=== PATIENT | female | born 1930 | race Caucasian/White ===

== ENCOUNTER 2016-08-02 08:00 | Outpatient (CLI) | payer MEDICARE, OTHER | END 2016-08-02 08:01 | disposition home or self-care (01) | DX: E78.9 Disorder of lipoprotein metabolism, unspecified (principal); I10 Essential (primary) hypertension; R73.01 Impaired fasting glucose; M17.0 Bilateral primary osteoarthritis of knee; M25.562 Pain in left knee; M25.561 Pain in right knee ==

== ENCOUNTER 2016-08-02 14:37 | Outpatient (CLI) | payer MEDICARE, OTHER | END 2016-08-02 14:38 | disposition home or self-care (01) | DX: M17.0 Bilateral primary osteoarthritis of knee (principal); M25.562 Pain in left knee; M25.561 Pain in right knee ==

== ENCOUNTER 2017-02-27 10:33 | Outpatient (CLI) | payer MEDICARE, OTHER ==
--- NOTE | 2017-02-27 14:24 | DEXA Report ---
DEXA SCAN: 02/27/2017 CLINICAL INDICATION: Postmenopausal. TECHNIQUE: Dual energy x-ray absorptiometry (DXA) was performed on a [employer] system. Regions measured are the AP spine, femoral neck, and, if needed, forearm. COMPARISON: None. In accordance with the International Society for Clinical Densitometry (ISCD) guidelines, data from previous exams may be reanalyzed using current recommendations and techniques. This is done to allow a more accurate basis for comparison with the current study. FINDINGS: The data for the lumbar spine is as follows: REGION BMD (g/cm/cm) T-SCORE Z-SCORE L1 0.719 -3.4 -1.3 L2 0.801 -3.3 -1.2 L3 1.141 -0.5 1.7 L4 1.246 0.4 2.5 TOTAL 0.999 -1.5 0.6 NOTE: All evaluable vertebrae are used for classification. The data for the hip is as follows: REGION BMD (g/cm/cm) T-SCORE Z-SCORE Neck 0.678 -2.6 0.0 TOTAL 0.730 -2.2 0.3 NOTE: The femoral neck or total proximal femur, whichever is lowest, is used for classification. IMPRESSION: THE WHO CLASSIFICATION BASED ON THE INTERNATIONAL REFERENCE STANDARD IS OSTEOPOROSIS (REFERENCE LEFT FEMORAL NECK). THE FRACTURE RISK IS HIGH. RECOMMENDATION: Patients with diagnosis of osteoporosis or osteopenia should have regular bone mineral density assessment. For those eligible for Medicare, routine testing is allowed once every 2 years. Testing frequency can be increased for patients who have rapidly progressing disease or for those who are receiving medical therapy to restore bone mass. COMMENT: World Health Organization (WHO) definitions for osteoporosis and osteopenia: NORMAL BMD: T-score at -1.0 or higher, fracture risk is low. OSTEOPENIA BMD: T-score between -1.0 and -2.5, fracture risk is increased. OSTEOPOROSIS BMD: T-score at -2.5 or lower, fracture risk high. National Osteoporosis Foundation recommends: 1. Obtain adequate dietary calcium (at least 1200 mg per day) and vitamin D (400 -800 international units per day). 2. Participate, as appropriate, in regular weightbearing and muscle- strengthening exercise. 3. Avoid tobacco use and reduce alcohol and caffeine intake. 4. For more detailed information see the website at www.NOF.org. MTDD
== END 2017-02-27 10:34 | disposition home or self-care (01) ==
LOC: DI 10:33
PROVIDERS: ATTEND Family Medicine
DX: M81.0 Age-related osteoporosis without current pathological fracture (principal)
CPT/HCPCS: 77080

== ENCOUNTER 2017-03-30 15:10 | Outpatient (CLI) | payer MEDICARE, OTHER ==
--- NOTE | 2017-03-30 19:13 | Ultrasound Report ---
ARTERIAL DOPPLER OF THE LOWER EXTREMITIES: 03/30/2017 HISTORY: Peripheral artery disease, leg pain, history of stents. COMPARISON: 03/27/2013 TECHNIQUE: Bilateral arterial Doppler examination of the lower extremities with saved static images reviewed. FINDINGS: All velocities in centimeters per second. Peak systolic velocities as follows: RIGHT SIDE: Common femoral 218, proximal superficial femoral 152, mid superficial femoral no flow demonstrated, distal superficial femoral 112, profunda femoral 320, popliteal 63, anterior tibial 48, posterior tibial 57, peroneal 35, dorsalis pedis 50. All flow is monophasic except for triphasic common femoral flow. LEFT SIDE: Common femoral 183, proximal femoral 88, mid femoral no flow, distal femoral 37, profunda femoral 248, popliteal 75, anterior tibial 43, posterior tibial 61, peroneal 28, dorsalis pedis 42. Flow is predominately monophasic with triphasic flow in the common femoral and proximal femoral arteries. IMPRESSION: 1. HEMODYNAMICALLY SIGNIFICANT STENOSIS IN THE BILATERAL PROFUNDA FEMORAL ARTERIES, SIMILAR TO PREVIOUS. 2. HEMODYNAMICALLY SIGNIFICANT STENOSIS PROXIMAL RIGHT COMMON FEMORAL ARTERY. 3. BILATERAL SUPERFICIAL FEMORAL ARTERY STENT OCCLUSIONS. 4. COLLATERAL RECONSTITUTION OF DISTAL FEMORAL ARTERIES BILATERALLY. 5. FINDINGS ARE SIMILAR TO THE STUDY OF 2012. JOB #: [id number] EXT JOB #: [id number] LAKESHIA
== END 2017-03-30 15:11 | disposition home or self-care (01) ==
LOC: DI 15:10
PROVIDERS: ATTEND Family Medicine
DX: I70.203 Unspecified atherosclerosis of native arteries of extremities, bilateral legs (principal); I77.1 Stricture of artery
CPT/HCPCS: 93925

== ENCOUNTER 2017-04-14 10:31 | Outpatient (CLI) | payer MEDICARE, OTHER ==
--- NOTE | 2017-04-14 14:18 | Ultrasound Report ---
CAROTID DUPLEX: 04/14/2017 CLINICAL INDICATION: Peripheral vascular disease. TECHNIQUE: Real-time sonographic vascular imaging was performed by the horticultural technical officer through the carotid arteries utilizing both color-flow and Doppler spectral analysis. Multiple brand representative static images were saved for review. Vessel PSV cm/sec 2D Plaque Estimate % EDV cm/sec ICA/CCA PSV % Stenosis RCCA Prox 71 -- RCCA Dist 62 10 -- RECA 156 -- RT BULB 62 -- 18 1.0 MEREDITH Prox 96 -- 34 1.6 MEREDITH Mid 86 -- 19 1.4 MEREDITH Dist 85 -- 20 1.4 RVA 43 RVA flow direction: Antegrade. Vessel PSV cm/sec 2D Plaque Estimate % EDV cm/sec ICA/CCA PSV % Stenosis LCCA Prox 106 -- LCCA Dist 88 15 -- LECA 175 -- LFT BULB 92 -- 13 1.0 LICA Prox 108 -- 21 1.2 LICA Mid 107 -- 24 1.2 LICA Dist 130 -- 32 1.5 LVA 102 LVA flow direction: Antegrade. Velocity criteria are extrapolated from diameter data as defined by the Society of Radiologists in Ultrasound Consensus Conference Radiology 2003; 229; 340-346. Degree of Stenosis % ICA PSV cm/sec Plaque Estimate % ICA/CCA RSV Ratio ICA EDV cm/sec Normal < 125 None < 2.0 < 40 <50 < 125 < 50 < 2.0 < 40 50-69 125 - 130 >/= 50 2.0 - 4.0 40 - 100 >/= 70 but less than near occlusion > 230 >/= 50 > 4.0 > 100 Near occlusion High, low, or undetectable Visible lumen Variable Variable Total occlusion Undetectable No detectable lumen Not applicable Not applicable FINDINGS RIGHT: There is mild plaquing in the right carotid bifurcation, without evidence of a focal hemodynamically significant carotid stenosis. LEFT: There is mild plaquing in the left carotid bifurcation, without evidence of a focal hemodynamically significant carotid stenosis. The vertebral arteries demonstrate antegrade flow bilaterally. Note is made of an irregular heart rhythm. IMPRESSION: MILD PLAQUING BILATERALLY, WITHOUT EVIDENCE OF A FOCAL HEMODYNAMICALLY SIGNIFICANT CAROTID STENOSIS. IRREGULAR HEART RHYTHM. MTDD
== END 2017-04-14 10:32 | disposition home or self-care (01) ==
LOC: DI 10:31
PROVIDERS: ATTEND Family Medicine
DX: I77.9 Disorder of arteries and arterioles, unspecified (principal); I73.9 Peripheral vascular disease, unspecified
CPT/HCPCS: 93880

== ENCOUNTER 2017-04-27 08:46 | Outpatient (CLI) | payer MEDICARE, OTHER ==
[2017-04-27] MEDS ORDERED: REGADENOSON 0.4 MG/5 ML SYRINGE IVP ONE (10:43)
--- NOTE | 2017-04-27 12:59 | CARDIAC PROCEDURE NOTE ---
DATE OF SERVICE: 04/27/2017 00:00:00 PRIMARY CARE PHYSICIAN: Liam Benites DO. PROCEDURE: Pharmacologic stress test. PROCEDURE SYMPTOMS: Preoperative orthopedic surgery in an elderly person. CARDIAC RISK FACTORS: Include age, hypertension, hyperlipidemia, and peripheral arterial disease. PREVIOUS CARDIAC PROCEDURES: Include ETT approximately 25 years ago. CLINICAL HISTORY: An 86-year-old female without known coronary artery disease. INITIAL RESTING VITAL SIGNS: Blood pressure 164/56, heart rate 69, height 62 inches, weight 128 pound s, BMI 23.0. PROCEDURE AND FINDINGS: The patient's identity and date verified. Consent signed. Safety stop. Pharmacologic stress testing was performed with Lexiscan at a dose of 0.4 mg over 10 seconds. The hea rt rate increased to 84 beats per minute from the infusion. The blood pressure response was normal, d ecreasing to 124/54. The patient developed infusion related symptoms, which included a very mild ches t pressure. The symptoms resolved spontaneously. The resting ECG demonstrated normal sinus rhythm wit h no ST or T-wave changes. Maximum ST segment depression with stress was less than 0.5 mm and upslopi ng. There were occasional monomorphic PVCs, occasionally in a bigeminal pattern. FINAL IMPRESSION 1. Negative electrocardiogram for ischemia in the setting of vasodilator stress. 2. Nondiagnostic stress test for angina. 3. Occasional premature ventricular contractions (PVCs), including bigeminy. DISCUSSION AND RECOMMENDATIONS: Await myocardial perfusion report. JOB #: [id number] EXT JOB #:[id number]
--- NOTE | 2017-04-27 15:17 | Nuclear Medicine Report ---
EXAM: NUCLEAR MEDICINE MYOCARDIAL PERFUSION STRESS AND REST EXAM DATE: 04/27/2017 10:02 AM. CLINICAL HISTORY: Hypertension and peripheral vascular disease. COMPARISON: No priors. TECHNIQUE: Initially, patient was given 9.6 mCi technetium 99m sestamibi IV for the rest portion of t he study. Non-gated cardiac SPECT scintigraphy performed with multiplanar reformats. After an appropriate delay, patient given 0.4 mg Lexiscan for pharmacologic stress. Next, patient given 41.2 mCi technetium 99m sestamibi IV. Cardiac gated SPECT scintigraphy performed with multiplanar reformats, wall motion analysis, and left ventricular ejection fraction estimation. FINDINGS: There is uniform radiopharmaceutical activity in the left ventricular myocardium on stress and rest. No fixed or reversible stress-related perfusion defects. Wall motion appears uniform. Left ventricular ejection fraction estimated at 75%. IMPRESSION: 1. No scintigraphic evidence of inducible ischemia or infarct. 2. Left ventricular ejection fraction estimated at 75%. [facility] Referring Provider Line: [phone] SITE ID: [id number]
[2017-04-27 16:40] VITALS: BP 164/56
== END 2017-04-27 08:47 | disposition home or self-care (01) ==
LOC: DI 08:46
PROVIDERS: ATTEND Family Medicine
DX: I10 Essential (primary) hypertension (principal); I70.209 Unspecified atherosclerosis of native arteries of extremities, unspecified extremity; E78.5 Hyperlipidemia, unspecified
CPT/HCPCS: 78452; 93017; A9500; J2785

== ENCOUNTER 2017-05-05 10:10 | Outpatient (CLI) | payer MEDICARE, OTHER ==
--- NOTE | 2017-05-05 18:32 | MRI Report ---
EXAM: MRI LUMBAR SPINE WITHOUT CONTRAST EXAM DATE: 05/05/2017 11:25 AM. CLINICAL HISTORY: Right foot numbness which radiates up lower leg. Bilateral ankle pain. Leg numbness . COMPARISON: None. TECHNIQUE: Multiplanar, multisequence T1-weighted and fluid-sensitive sequences of the lumbar spine without contrast. Other: None. FINDINGS: Numbering assumes 5 non-rib bearing lumbar type vertebral bodies. A T2 hyperintensity in the right upper quadrant could reflect a fluid-filled duodenal bulb. There is a T2 hypointense focus measuring 11 mm along the medial aspect of the right colon on image 8 of serie s 701. This is slightly T1 hyperintense. A tiny cortical cyst is seen mid pole left kidney. No suspicious marrow replacement is identified. Grade 1 retrolisthesis of L2 relative to L3 and L3 re lative to L4 is present. Grade 1 anterolisthesis of L5 relative to S1 is present. The distal tip of the conus medullaris is seen to the level of the L4-L5 disk space. The distal tip o f the conus medullaris is seen on the dorsal aspect of the thecal sac. T11-T12 and T12-L1: Minimal posterior disk protrusions. L1-L2: Grade 1 retrolisthesis of L1 relative to L2 is present. A mild posterior disk protrusion is pr esent. No central canal or foraminal stenosis. L2-L3: A mild to moderate posterior disk protrusion is seen. Superior lateral recess stenosis is seen on the left. No central canal or foraminal stenosis. L3-L4: A mild to moderate posterior disk protrusion is seen. Right foraminal narrowing is seen. At le ast moderate left foraminal stenosis is present. Superior lateral recess stenosis is seen bilaterally . L4-L5: A mild posterior disk protrusion is seen more focal involving the right and to a lesser extent left foraminal margin of the disk. Moderate right foraminal stenosis is present. Superior lateral re cess stenosis is seen on the right and to a lesser extent on the left. L5-S1: A mild posterior disk protrusion is seen. Disk and osteophyte are seen along the foraminal mar gin of the disk bilaterally greater on the left relative to the right. [id number] right foramin al stenosis is seen. No left foraminal stenosis is present. Diskogenic endplate irregularity is seen at T11-T12, L2-L3, and L3-L4. Facet/ligamentum flavum hypertrophy is seen throughout the lumbar spine. IMPRESSION: 1. Degenerative disk disease is seen throughout the lumbar spine. 2. No central canal stenosis. 3. Mild to moderate right foraminal stenosis is seen at L5-S1, moderate right foraminal stenosis seen at L4-L5, and moderate left foraminal stenosis is present at L3-L4. 4. The distal tip of the conus medullaris is low-lying and appears to be tethered to the dorsal aspec t of the thecal sac at the level of the L4-L5 disk space. 5. Multilevel spondylolisthesis is present. 6. The nodule along the medial wall of the ascending colon might reflect a diverticulum. Comment: The following findings are so common in adults without low back pain that while we report th eir presence, they must be interpreted with caution and in the context of the clinical situation. (Re barbara Marcus et al, Spine 2001) Prevalence of findings in patients without low back pain: Disk degeneration (any evidence): 92% Disk desiccation/T2 signal loss: 83% Disk height loss: 56% Disk bulge: 64% Disk protrusion: 32% Annular tear/high intensity zone: 38% [facility] Referring Provider Line: [phone] SITE ID: [id number]
== END 2017-05-05 10:11 | disposition home or self-care (01) ==
LOC: DI 10:10
PROVIDERS: ATTEND Surgery Vascular Surgery
DX: M51.26 Other intervertebral disc displacement, lumbar region (principal); M51.36 Other intervertebral disc degeneration, lumbar region; M43.16 Spondylolisthesis, lumbar region; M51.27 Other intervertebral disc displacement, lumbosacral region
CPT/HCPCS: 72148

== ENCOUNTER 2017-08-21 08:09 | Outpatient (CLI) | payer MEDICARE, OTHER ==
[2017-08-21 12:58] LABS: BASOPHILS % (AUTO) 0.7 %; EOSINOPHILS # (AUTO) 0.1 10^3/uL (0.0-0.7); EOSINOPHILS % (AUTO) 1.6 %; HGB - HEMOGLOBIN 8.3 g/dL (12.0-16.0); LYMPHOCYTES # (AUTO) 1.6 10^3/uL (1.5-3.5); LYMPHOCYTES % (AUTO) 22.2 %; MEAN CORPUSCULAR HEMOGLOBIN 20.6 pg (27.0-31.0); MEAN CORPUSCULAR HGB CONC 31.5 g/dL (32.0-36.0); MEAN CORPUSCULAR VOLUME 65.4 fL (81.0-99.0); MEAN PLATELET VOLUME 7.9 fL (7.9-10.8); MONOCYTES # (AUTO) 0.5 10^3/uL (0.0-1.0); MONOCYTES % (AUTO) 7.5 %; NEUTROPHILS # (AUTO) 4.8 10^3/uL (1.5-6.6); PLT - PLATELET COUNT 340 10^3/uL (130-450); RED BLOOD COUNT 4.02 10^6/uL (4.20-5.40); WHITE BLOOD COUNT 7.1 x10^3/uL (4.8-10.8)
[2017-08-21 13:35] LABS: ALBUMIN 3.8 g/dL (3.2-5.5); ALBUMIN/GLOBULIN RATIO 1.4 (1.0-2.2); ALKALINE PHOSPHATASE 56 IU/L (42-121); ALT ALANINE AMINOTRANSFERASE 16 IU/L (10-60); AST ASPARTATE AMINOTRANSFERASE 22 IU/L (10-42); BILIRUBIN,TOTAL 0.3 mg/dL (0.2-1.0); BUN - BLOOD UREA NITROGEN 21 mg/dL (6-20); CALCIUM 9.1 mg/dL (8.5-10.3); CARBON DIOXIDE - CO2 24 mmol/L (21-32); CHLORIDE 106 mmol/L (101-111); CHOLESTEROL 164 mg/dL; CREATININE 0.7 mg/dL (0.4-1.0); GFR - MDRD 79 (>89); GLUCOSE 105 mg/dL (70-100); HDL CHOLESTEROL 82 mg/dL; LDL CHOLESTEROL,CALCULATED 70 mg/dL; LDL/HDL RATIO 0.9 (<4.4); SODIUM 135 mmol/L (135-145); TOTAL PROTEIN 6.5 g/dL (6.7-8.2); VLDL CHOLESTEROL 12 mg/dL
== END 2017-08-21 08:10 | disposition home or self-care (01) ==
LOC: LAB.WCP 08:09
PROVIDERS: ATTEND Family Medicine
DX: I10 Essential (primary) hypertension (principal); E78.9 Disorder of lipoprotein metabolism, unspecified
CPT/HCPCS: 36415; 80053; 80061; 83721; 84443; 85025

== ENCOUNTER 2017-09-04 10:34 | Outpatient (CLI) | payer MEDICARE, OTHER ==
[2017-09-04 19:43] LABS: % IRON SATURATION 3 % (20-50); IRON 15 ug/dL (28-170); TOTAL IRON BINDING CAPACITY 433 ug/dL (250-450); TRANSFERRIN 309 mg/dL (192-382)
== END 2017-09-04 10:35 ==
LOC: LAB.WCP 10:34
PROVIDERS: ATTEND Physician Assistant Medical
DX: D64.9 Anemia, unspecified (principal)
CPT/HCPCS: 36415; 82728; 83540; 84466

== ENCOUNTER 2017-09-21 15:19 | Outpatient (CLI) | payer MEDICARE, OTHER ==
[2017-09-21 19:16] LABS: BASOPHILS # (AUTO) 0.1 10^3/uL (0.0-0.1); BASOPHILS % (AUTO) 0.7 %; EOSINOPHILS # (AUTO) 0.1 10^3/uL (0.0-0.7); EOSINOPHILS % (AUTO) 1.9 %; HGB - HEMOGLOBIN 9.5 g/dL (12.0-16.0); LYMPHOCYTES # (AUTO) 1.6 10^3/uL (1.5-3.5); LYMPHOCYTES % (AUTO) 21.5 %; MEAN CORPUSCULAR HEMOGLOBIN 21.9 pg (27.0-31.0); MEAN CORPUSCULAR HGB CONC 31.2 g/dL (32.0-36.0); MEAN CORPUSCULAR VOLUME 70.1 fL (81.0-99.0); MEAN PLATELET VOLUME 8.3 fL (7.9-10.8); MONOCYTES # (AUTO) 0.6 10^3/uL (0.0-1.0); MONOCYTES % (AUTO) 7.9 %; PLT - PLATELET COUNT 327 10^3/uL (130-450); RED BLOOD COUNT 4.33 10^6/uL (4.20-5.40); RED CELL DISTRIBUTION WIDTH 24.8 % (12.0-15.0); WHITE BLOOD COUNT 7.3 x10^3/uL (4.8-10.8)
[2017-09-21 19:35] LABS: % IRON SATURATION 27 % (20-50); IRON 92 ug/dL (28-170); TOTAL IRON BINDING CAPACITY 343 ug/dL (250-450); TRANSFERRIN 245 mg/dL (192-382)
[2017-09-21 19:44] LABS: FERRITIN 571.4 ng/mL (11.0-306.8)
[2017-09-21 19:47] LABS: FOLATE 16.51 ng/mL (5.90 - >24.8)
[2017-09-21 19:48] LABS: PLATELET ESTIMATE, MANUAL NORMAL (130-450,000) (NORMAL); PLATELET MORPHOLOGY NORMAL APPEARANCE (NORMAL)
== END 2017-09-21 15:20 ==
LOC: LAB.WCP 15:19
PROVIDERS: ATTEND Family Medicine
DX: D64.9 Anemia, unspecified (principal)
CPT/HCPCS: 36415; 82607; 82728; 82746; 83540; 84466; 85025

== ENCOUNTER 2018-06-26 11:19 | Outpatient (CLI) | payer MEDICARE, OTHER ==
[2018-06-26 19:08] LABS: BASOPHILS # (AUTO) 0.1 10^3/uL (0.0-0.1); BASOPHILS % (AUTO) 0.8 %; EOSINOPHILS # (AUTO) 0.1 10^3/uL (0.0-0.7); EOSINOPHILS % (AUTO) 1.3 %; HGB - HEMOGLOBIN 12.6 g/dL (12.0-16.0); LYMPHOCYTES # (AUTO) 1.6 10^3/uL (1.5-3.5); MEAN CORPUSCULAR HEMOGLOBIN 29.3 pg (27.0-31.0); MEAN CORPUSCULAR HGB CONC 32.8 g/dL (32.0-36.0); MEAN CORPUSCULAR VOLUME 89.3 fL (81.0-99.0); MEAN PLATELET VOLUME 8.4 fL (7.9-10.8); MONOCYTES # (AUTO) 0.5 10^3/uL (0.0-1.0); MONOCYTES % (AUTO) 8.3 %; NEUTROPHILS # (AUTO) 4.2 10^3/uL (1.5-6.6); NEUTROPHILS % (AUTO) 65.6 %; PLT - PLATELET COUNT 279 10^3/uL (130-450); WHITE BLOOD COUNT 6.5 x10^3/uL (4.8-10.8)
== END 2018-06-26 23:59 | disposition home or self-care (01) ==
LOC: LAB.WCP 11:19
PROVIDERS: ATTEND Family Medicine
DX: D64.9 Anemia, unspecified (principal)
CPT/HCPCS: 36415; 85025

== ENCOUNTER 2019-05-23 13:34 | Outpatient (CLI) | payer MEDICARE, OTHER | END 2019-05-23 13:35 | disposition critical access hospital (66) | LOC: EMS 13:34 | PROVIDERS: ATTEND Surgery | DX: R42 Dizziness and giddiness (principal); R06.02 Shortness of breath | CPT/HCPCS: A0425; A0429 ==

== ENCOUNTER 2019-05-23 13:53 | Inpatient (IN) | payer MEDICARE, OTHER ==
--- NOTE | 2019-05-23 14:32 | ED Physician Documentation ---
PD HPI DYSPNEA - Stated complaint Stated Complaint: DIZZY/SOA - Chief complaint Chief Complaint: Neuro - History obtained from History obtained from: Patient, EMS - History of Present Illness Timing - onset: How many weeks ago (She has noticed pedal edema for the last 5 or 6 weeks with progression of it. It does get better with raising her legs and elevating. She has noticed dyspnea on exertion for the last 1 to 2 weeks which has significantly worsened over the last several days. She is feeling lightheaded after standing up. She denies any vertigo. She denies any chest pain. She has a pressure feeling in her chest and back when walking around and breathing the last several days to a week. She has had a very slight cough. She denies any fevers or sputum production.) Timing - onset during: Light activity, Exertion Timing - duration: Weeks (1) Timing - details: Gradual onset, Still present, Waxing and waning Inciting event(s): No: Out of meds, URI, Immobilization/travel Improved by: Rest. No: Sitting up Worsened by: Exertion. No: Laying flat Associated symptoms: Chest pain / discomfort (pressure with walking the past week only). No: Fever, Cough, Hemoptysis Similar symptoms before: Has not had sx before Recently seen: Not recently seen Review of Systems Constitutional: denies: Fever, Chills Nose: denies: Rhinorrhea / runny nose, Congestion, Epistaxis Throat: denies: Sore throat Cardiac: reports: Chest pain / pressure, Pedal edema. denies: Palpitations, Calf pain Respiratory: denies: Cough GI: denies: Abdominal Pain, Nausea, Vomiting, Diarrhea, Bloody / black stool Skin: denies: Rash, Lesions Musculoskeletal: denies: Back pain, Extremity pain Neurologic: reports: Generalized weakness. 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 Cardiovascular: Fempop bypass HEENT: Cataracts - Present Medications Home Medications: Ambulatory Orders Medication Instructions Recorded Confirmed Amlodipine Bes/Olmesartan Med 1 each PO DAILY 07/23/13 07/23/13 [Rodrigo 10-20 mg Tablet] Cholecalciferol (Vitamin D3) 2,000 unit PO DAILY 09/15/17 09/15/17 [Vitamin D3] Magnesium 400 mg PO DAILY 09/15/17 09/15/17 - Allergies Allergies/Adverse Reactions: Allergies Allergy/AdvReac Type Severity Reaction Status Date / Time No Known Drug Allergies Allergy Verified 07/23/13 14:40 PD ED PE NORMAL - Vitals Vital signs reviewed: Yes - General General: Alert and oriented X 3, No acute distress, Well developed/nourished - HEENT HEENT: Moist mucous membranes, Pharynx benign - Neck Neck: Supple, no meningeal sign, No adenopathy - Cardiac Cardiac: RRR, No murmur - Respiratory Respiratory: No: Clear bilaterally (faint crackles at the bases. No coarse sounds. ) - Abdomen Abdomen: Normal bowel sounds, Soft, Non distended - Female Female : Deferred - Rectal Rectal: Other (no hemorrhoids. Soft stool brown in vault. Guiac negative. ) - Back Back: No CVA TTP - Derm Derm: Normal color, Warm and dry - Extremities Extremities: No calf tenderness / cord, Other (2+ edema in both legs/ankles up to the knees. ) - Neuro Neuro: Alert and oriented X 3, No motor deficit, Normal speech Results - Vitals Vitals: Vital Signs - 24 hr 05/23/19 13:58 Temperature 36.9 C Heart Rate 68 Respiratory 18 Rate Blood Pressure 157/55 H O2 Saturation 99 Oxygen O2 Source Room air - EKG (time done) 14:02 Rate: Rate (enter#) (64) Rhythm: NSR [place]: Normal Intervals: Normal MS QRS: Normal Ischemia: Normal ST segments. No: ST elevation c/w ischemia, ST depression - Labs Labs: Laboratory Tests 05/23/19 05/23/19 05/23/19 14:41 14:41 14:41 WBC 6.1 RBC 3.20 L Hgb 5.6 L* Hct 20.2 L MCV 63.1 L MCH 17.5 L MCHC 27.7 L RDW 18.0 H Plt Count 303 MPV 9.3 Reticulocyte % (Auto) Neut # (Auto) 4.3 Lymph # (Auto) 1.1 L [place] # (Auto) 0.6 Eos # (Auto) 0.1 Baso # (Auto) 0.0 Absolute Nucleated RBC 0.00 Nucleated RBC % 0.0 Manual Slide Review Indicated Platelet Estimate NORMAL (130-450,000) Platelet Morphology NORMAL APPEARANCE RBC Morph Micro Appear 1+ SCHISTOCYTES Absolute Retic Sodium 135 Potassium 4.3 Chloride 104 Carbon Dioxide 22 Anion Gap 9.0 BUN 29 H Creatinine 0.7 Estimated GFR (MDRD) 79 L Glucose 122 H Calcium 8.8 Magnesium 2.2 Iron TIBC Transferrin Ferritin Total Bilirubin 0.5 AST 23 ALT 25 Alkaline Phosphatase 56 Lactate Dehydrogenase Troponin I High Sens 89.0 H* B-Natriuretic Peptide Total Protein 5.9 L Albumin 3.3 Globulin 2.6 Albumin/Globulin Ratio 1.3 Lipase 43 Vitamin B12 TSH Urine Color Urine Clarity Urine pH Ur Specific [place] Urine Protein Urine Glucose (UA) Urine Ketones Urine Occult Blood Urine Nitrite Urine Bilirubin Urine Urobilinogen Ur Leukocyte Esterase Urine RBC Urine WBC Ur Squamous Epith Cells Urine Bacteria Ur Microscopic Review Urine Culture Comments Blood Type Blood Type Recheck Antibody Screen Crossmatch IS Only 05/23/19 05/23/19 05/23/19 14:41 14:41 14:41 WBC RBC 3.17 L Hgb Hct MCV MCH MCHC RDW Plt Count MPV Reticulocyte % (Auto) 1.72 Neut # (Auto) Lymph # (Auto) [place] # (Auto) Eos # (Auto) Baso # (Auto) Absolute Nucleated RBC Nucleated RBC % Manual Slide Review Platelet Estimate Platelet Morphology RBC Morph Micro Appear Absolute Retic 0.055 Sodium Potassium Chloride Carbon Dioxide Anion Gap BUN Creatinine Estimated GFR (MDRD) Glucose Calcium Magnesium Iron TIBC Transferrin Ferritin Total Bilirubin AST ALT Alkaline Phosphatase Lactate Dehydrogenase Troponin I High Sens B-Natriuretic Peptide 1547 H Total Protein Albumin Globulin Albumin/Globulin Ratio Lipase Vitamin B12 TSH 1.68 Urine Color Urine Clarity Urine pH Ur Specific [place] Urine Protein Urine Glucose (UA) Urine Ketones Urine Occult Blood Urine Nitrite Urine Bilirubin Urine Urobilinogen Ur Leukocyte Esterase Urine RBC Urine WBC Ur Squamous Epith Cells Urine Bacteria Ur Microscopic Review Urine Culture Comments Blood Type Blood Type Recheck Antibody Screen Crossmatch IS Only 05/23/19 05/23/19 05/23/19 14:41 14:41 14:41 WBC RBC Hgb Hct MCV MCH MCHC RDW Plt Count MPV Reticulocyte % (Auto) Neut # (Auto) Lymph # (Auto) [place] # (Auto) Eos # (Auto) Baso # (Auto) Absolute Nucleated RBC Nucleated RBC % Manual Slide Review Platelet Estimate Platelet Morphology RBC Morph Micro Appear Absolute Retic Sodium Potassium Chloride Carbon Dioxide Anion Gap BUN Creatinine Estimated GFR (MDRD) Glucose Calcium Magnesium Iron < 6 L TIBC 456 H Transferrin 326 Ferritin 7.6 L Total Bilirubin AST ALT Alkaline Phosphatase Lactate Dehydrogenase 134 Troponin I High Sens B-Natriuretic Peptide Total Protein Albumin Globulin Albumin/Globulin Ratio Lipase Vitamin B12 1256 H TSH Urine Color Urine Clarity Urine pH Ur Specific [place] Urine Protein Urine Glucose (UA) Urine Ketones Urine Occult Blood Urine Nitrite Urine Bilirubin Urine Urobilinogen Ur Leukocyte Esterase Urine RBC Urine WBC Ur Squamous Epith Cells Urine Bacteria Ur Microscopic Review Urine Culture Comments Blood Type Blood Type Recheck Antibody Screen Crossmatch IS Only 05/23/19 05/23/19 05/23/19 14:55 15:00 15:30 WBC RBC Hgb Hct MCV MCH MCHC RDW Plt Count MPV Reticulocyte % (Auto) Neut # (Auto) Lymph # (Auto) [place] # (Auto) Eos # (Auto) Baso # (Auto) Absolute Nucleated RBC Nucleated RBC % Manual Slide Review Platelet Estimate Platelet Morphology RBC Morph Micro Appear Absolute Retic Sodium Potassium Chloride Carbon Dioxide Anion Gap BUN Creatinine Estimated GFR (MDRD) Glucose Calcium Magnesium Iron TIBC Transferrin Ferritin Total Bilirubin AST ALT Alkaline Phosphatase Lactate Dehydrogenase Troponin I High Sens B-Natriuretic Peptide Total Protein Albumin Globulin Albumin/Globulin Ratio Lipase Vitamin B12 TSH Urine Color YELLOW Urine Clarity CLEAR Urine pH 5.5 Ur Specific [place] 1.010 Urine Protein 30 H Urine Glucose (UA) NEGATIVE Urine Ketones NEGATIVE Urine Occult Blood NEGATIVE Urine Nitrite POSITIVE H Urine Bilirubin NEGATIVE Urine Urobilinogen 0.2 (NORMAL) Ur Leukocyte Esterase MODERATE H Urine RBC None Seen Urine WBC >25 H Ur Squamous Epith Cells RARE Squamous Urine Bacteria Moderate H Ur Microscopic Review INDICATED Urine Culture Comments INDICATED Blood Type O POSITIVE Blood Type Recheck O POSITIVE Antibody Screen NEGATIVE Crossmatch IS Only See Detail - Rads (name of study) chest xray Radiology: Prelim report reviewed, See rad report PD MEDICAL DECISION MAKING - ED course Complexity details: reviewed results (She is significantly anemic and looks to be likely iron deficient. She is guaiac negative on stool exam. She does have evidence for CHF with elevated BNP, some fine crackles at the bases and leg edema. This may be nonischemic related and related to the work load from the anemia. Further evaluation will be needed. Echo is pending. Given the signs of CHF, will be concerns for transfusion and will want to be slow and careful with that. I talked with the hospitalist for placement in the hospital for treatment.), re-evaluated patient, considered differential (Consider heart and lung related causes but will also check blood count and chemistries to evaluate for other causes of dyspnea. Concerning would be heart related given her leg edema and dyspnea on exertion and lightheadedness.), d/w patient Departure - Departure Disposition: ED Place in Observation Clinical Impression: Dyspnea on minimal exertion, Severe anemia CHF (congestive heart failure) Qualifiers: Heart failure type: unspecified Heart failure chronicity: acute Qualified Code(s): I50.9 - Heart failure, unspecified Condition: Stable Record reviewed to determine appropriate education?: Yes
[2019-05-23 14:49] LABS: BASOPHILS % (AUTO) 0.3 %; EOSINOPHILS # (AUTO) 0.1 10^3/uL (0.0-0.7); EOSINOPHILS % (AUTO) 0.8 %; LYMPHOCYTES # (AUTO) 1.1 10^3/uL (1.5-3.5); LYMPHOCYTES % (AUTO) 17.5 %; MEAN CORPUSCULAR HEMOGLOBIN 17.5 pg (27.0-31.0); MEAN CORPUSCULAR HGB CONC 27.7 g/dL (32.0-36.0); MEAN CORPUSCULAR VOLUME 63.1 fL (81.0-99.0); MEAN PLATELET VOLUME 9.3 fL (7.9-10.8); MONOCYTES # (AUTO) 0.6 10^3/uL (0.0-1.0); MONOCYTES % (AUTO) 10.4 %; NEUTROPHILS # (AUTO) 4.3 10^3/uL (1.5-6.6); NEUTROPHILS % (AUTO) 70.3 %; PLT - PLATELET COUNT 303 10^3/uL (130-450); WHITE BLOOD COUNT 6.1 x10^3/uL (4.8-10.8)
[2019-05-23 14:53] LABS: HGB - HEMOGLOBIN 5.6 g/dL (12.0-16.0)
[2019-05-23 15:02] LABS: ALBUMIN 3.3 g/dL (3.2-5.5); ALBUMIN/GLOBULIN RATIO 1.3 (1.0-2.2); BILIRUBIN,TOTAL 0.5 mg/dL (0.2-1.0); CALCIUM 8.8 mg/dL (8.5-10.3); CREATININE 0.7 mg/dL (0.4-1.0); MAGNESIUM 2.2 mg/dL (1.7-2.8); TOTAL PROTEIN 5.9 g/dL (6.7-8.2)
[2019-05-23 15:03] LABS: BILIRUBIN,URINE NEGATIVE (NEGATIVE); GLUCOSE, URINE (UA) NEGATIVE (NEGATIVE); KETONES,URINE (UA) NEGATIVE (NEGATIVE); LEUKOCYTE ESTERASE, URINE MODERATE (NEGATIVE); NITRITE,URINE POSITIVE (NEGATIVE); OCCULT BLOOD,URINE NEGATIVE (NEGATIVE); PH,URINE 5.5 PH (5.0-7.5); PROTEIN,URINE 30 mg/dL (NEGATIVE); UROBILINOGEN,URINE 0.2 (NORMAL) E.U./dL (NORMAL)
[2019-05-23 15:06] LABS: PLATELET ESTIMATE, MANUAL NORMAL (130-450,000) (NORMAL); PLATELET MORPHOLOGY NORMAL APPEARANCE (NORMAL)
[2019-05-23 15:07] LABS: CLARITY,URINE CLEAR (CLEAR)
[2019-05-23 15:15] LABS: BACTERIA,URINE Moderate /HPF (None Seen); RBC,URINE None Seen /HPF (0-5); SQUAMOUS EPITHELIAL CELL,UR RARE Squamous (<= Few)
[2019-05-23 15:20] LABS: ABSOLUTE RETICS # AUTO 0.055 10^6/uL (0.020-0.110); RED BLOOD COUNT 3.17 10^6/uL (4.20-5.40)
[2019-05-23] MEDS ORDERED: cefTRIAXone 1 GM VIAL IVP STA (15:26)
[2019-05-23 15:38] LABS: IRON < 6 ug/dL (28-170); TOTAL IRON BINDING CAPACITY 456 ug/dL (250-450); TRANSFERRIN 326 mg/dL (192-382)
--- NOTE | 2019-05-23 15:39 | XRAY Report ---
Reason: dyspnea/ cough Procedure Date: 05/23/2019 Accession Number: [id number] / [id number] Procedure: XR - Chest 2 View X-Ray CPT Code: 67423 Final Report FULL RESULT: EXAM: CHEST RADIOGRAPHY EXAM DATE: 05/23/2019 03:04 PM. CLINICAL HISTORY: Dyspnea/ cough. COMPARISON: None. TECHNIQUE: 2 views. FINDINGS: Lungs/Pleura: Mild bronchial wall thickening centrally. Small multiple reticul age and at the lung bases. Mild blunting of the right costophrenic angle. Minimal groundglass at the right lung base. No pneumothorax. Mild flattening of the hemidiaphragms. Mediastinum: Mild enlarged appearing cardiac silhouette size. Atherosclerotic vascular calcification. Other: None. IMPRESSION: 1. Mild blunting of the right costophrenic angle, suspicious for a small effusion. Minimal groundglass at the right base may reflect a small amount of atelectasis versus early/mild pneumonia in the proper setting. 2. Probable chronic changes COPD with small amount of pleural and parenchymal scarring. Small amount of bronchial wall thickening, suggesting airways disease. [facility]
[2019-05-23 15:51] LABS: FERRITIN 7.6 ng/mL (11.0-306.8)
--- NOTE | 2019-05-23 16:37 | HISTORY & PHYSICAL EXAMINATION ---
Chief Complaint - Chief Complaint Chief Complaint: Weakness History of Present Illness - Admitted From Admitted From:: Home - History Obtained From Records Reviewed: Yes History obtained from: Patient, ER Physician, EMR - History of Present Illness HPI Comment/Other: This is a pleasant 88-year-old female with a past medical history significant for hypertension who presents from home today complaining of worsening fatigue and weakness over the past few weeks. She states her symptoms became more significant today and therefore she seeked medical attention. She states her symptoms have been going on for a few weeks now. She has associated dyspnea with exertion but no dyspnea at rest. She reports no chest pain, dysuria, urgency, frequency. She also reports worsening lower extremity edema over the past 6 weeks. She denies a prior history of myocardial infarction or heart failure. She has not noticed any signs of bleeding. Denies blood in her stools. She states she has a history of iron deficiency anemia in the past for which she required IV iron infusions. She reports never receiving a blood transfusion in the past. She does not currently receive any iron supplementation. She states she had a colonoscopy quite a few years ago and it was normal from what she can recall. In the emergency department, she was found to be hemodynamically stable. Her hemoglobin was found to be 5.6 with a low iron and ferritin. Her BNP was also elevated at greater than 1500. Her troponin is also elevated in the 80s. Her EKG does show T wave inversions in leads II, III, aVF. There is no old EKG to compare to. Given these findings, medicine was consulted for admission. I did speak to the patient regarding her goals of care. She would like to be a DNR. 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 Denies a history of bleeding or cardiac problems. Living arrangement: At home Living Situation: Alone Social History Notes: She currently lives at home alone. She does not smoke. She does drink alcohol occasionally. She ambulates with a cane or walker at baseline. - Substance History Use: Uses substance without health or social issues: NONE Meds/Allgy - Home Medications Home Medications: Ambulatory Orders Medication Instructions Recorded Confirmed Amlodipine Bes/Olmesartan Med 1 each PO DAILY 07/23/13 07/23/13 [Rodrigo 10-20 mg Tablet] Cholecalciferol (Vitamin D3) 2,000 unit PO DAILY 09/15/17 09/15/17 [Vitamin D3] Magnesium 400 mg PO DAILY 09/15/17 09/15/17 - Allergies Allergies/Adverse Reactions: Allergies Allergy/AdvReac Type Severity Reaction Status Date / Time No Known Drug Allergies Allergy Verified 07/23/13 14:40 Review of Systems - Constitutional Constitutional: reports: Fatigue, Weakness. denies: Fever, Chills - Cardiovascular Cariovascular: reports: Edema, Exertional dyspnea, Decr. exercise tolerance. denies: Chest pain - Respiratory Respiratory: reports: SOB with exertion. denies: Cough, SOB at rest - Gastrointestinal Gastrointestinal: denies: Abdominal pain, Nausea, Vomiting - Genitourinary Genitourinary: denies: Dysuria, Frequency, Urgency, Hematuria - Musculoskeletal Musculoskeletal: reports: Back pain - Integumentary Integumentary: denies: Rash - Neurological Neurological: reports: General weakness, Dizziness. denies: Focal weakness - Hematologic/Lymphatic Hematologic/Lymphatic: reports: Anemia. denies: Bleeding tendencies - All Other Systems All Other Systems: reports: Reviewed and negative Prior Level of Functionality: She lives alone and is independent with ADLs. She ambulates with a cane or walker at baseline. Exam - Vital Signs Reviewed Vital Signs: Yes Vital Signs: Vital Signs x48h Temp Pulse Resp BP Pulse Ox 05/23/19 13:58 36.9 C 68 18 157/55 H 99 - Physical Exam General Appearance: positive: No acute distress, Alert Eyes Bilateral: positive: Other (Conjunctival pallor) ENT: positive: ENT inspection nml, No signs of dehydration Neck: positive: Nml inspection Respiratory: positive: No respiratory distress, Breath sounds nml. negative: Wheezes, Rales, Rhonchi Cardiovascular: positive: Regular rate & rhythm, No murmur. negative: Tachycardia, Bradycardia, Systolic murmur, Diastolic murmur Abdomen: positive: Non-tender, No distention. negative: Tenderness Skin: positive: No rash, Warm, Dry Extremities: positive: Full ROM, Pedal edema (+2 pitting edema in her bilateral lower extremties. Right > left.) Neurologic/Psychiatric: positive: Oriented x3, Other (No focal motor deficits.). negative: Disoriented to person, Disoriented to place, Disoriented to time Conclusion/Plan - Problem List (1) Iron deficiency anemia Conclusion/Plan: She does have a history of prior iron deficiency anemia for which she required IV iron transfusions. Her hemoglobin is low at 5.6 and her MCV is in the low 60s which is consistent with chronic iron deficiency anemia. Her iron is also quite low as well as her ferritin. We will transfuse 1 unit of packed red blood cells and start her on iron supplementation. She may ultimately require more than one transfusion and may potentially benefit from IV iron transfusion. Fortunately, there appears to be no signs of bleeding at this time. Her stool occult was negative in the ER. Will check another stool sample for occult bleeding. We will continue to monitor her hemoglobin. (2) Lower extremity edema Conclusion/Plan: She has lower extremity edema that is concerning for heart failure. Her right lower activities more edematous than her left is also concerning for possible DVT. Given her elevated BNP, will obtain an echocardiogram to evaluate for heart failure. We will also obtain Dopplers of the lower extremities to evaluate for DVT. She may need a diuretic with her blood transfusion although we will hold off at this time given she is not hypoxic. (3) Elevated troponin Conclusion/Plan: Her troponin is elevated and her EKG does show T wave inversions in leads II, III, aVF. Is not clear if the changes are new given there is no prior EKG. She did have myocardial perfusion testing performed 2 years ago which was negative for ischemia. This may be demand ischemia given her severe anemia and possibly heart failure. We will continue to trend her troponins at this time and obtain an echocardiogram. (4) Hypertension Conclusion/Plan: He is currently hypertensive and will resume her angiotensin receptor yon. We will hold off on amlodipine as this may be a cause of her lower extremity edema. She may benefit from hydrochlorothiazide on discharge. (5) Asymptomatic bacteriuria Conclusion/Plan: Urinalysis reveals pyuria, leukoesterase, nitrates, bacteriuria but she has no symptoms of dysuria, urgency, frequency. Will hold off on continuing antibiotics unless she develops symptoms. - Lab Results Lab results reviewed: Yes Fish Bones: 05/23/19 14:41 05/23/19 14:41 - Diagnostic Imaging Results Diagnostic Imaging Results: positive: Final report reviewed - EKG Results EKG Interpreted Independently: Yes EKG Comparison: No prior EKG EKG Findings: EKG reveals a sinus rhythm with inverted T waves in leads II, III, aVF. Core Measures - Anticipated LOS I expect patient to be DC'd or transferred within 96 hours.: Yes - Issues Hospital Issues and Management Plan: Symptomatic anemia requiring transfusion. - DVT/VTE - Prophylaxis VTE/DVT Device ordered at admit?: Yes VTE/DVT Prophylaxis med ordered at admit?: No
[2019-05-23] MEDS ORDERED: SODIUM CHLORIDE 0.9% 500 ML ONE (16:46)
[2019-05-23] MEDS: LOSARTAN 50 MG TABLET PO SCH (18:28)
[2019-05-23] MEDS: SODIUM CHLORIDE FLUSH 0.9% 10 ML SYRINGE IVP SCH (18:29)
[2019-05-23] MEDS ORDERED: FUROSEMIDE 40 MG/4 ML VIAL IVP STA (20:07)
--- NOTE | 2019-05-23 20:24 | Ultrasound Report ---
Reason: Lower extremity edema. R > L. Eval for DVT. Procedure Date: 05/23/2019 Accession Number: [id number] / [id number] Procedure: US - Duplex Ext Veins Bilateral CPT Code: Final Report FULL RESULT: EXAM: BILATERAL LOWER EXTREMITY VENOUS ULTRASOUND EXAM DATE: 05/23/2019 06:27 PM. CLINICAL HISTORY: Lower extremity edema. R L. Eval for DVT. COMPARISON: None. TECHNIQUE: Real-time sonographic vascular imaging was performed by the licensed nursing assistant through the lower extremities utilizing both color-flow and Doppler spectral analysis. Multiple sales and marketing representative static images were saved for review. FINDINGS: Right: Common Femoral Vein (CFV): Normal. CFV-GSV Junction: Normal. Profunda Femoral Vein (PFV): Normal. Femoral Vein (FV) Prox: Normal. Femoral Vein (FV) Mid: Normal. Femoral Vein (FV) Dist: Normal. Popliteal Vein: Normal. Posterior Tibial Veins: Limited evaluation but no gross evidence of thrombus. Peroneal Veins: Not well seen. Left: Common Femoral Vein (CFV): Normal. CFV-GSV Junction: Normal. Profunda Femoral Vein (PFV): Normal. Femoral Vein (FV) Prox: Normal. Femoral Vein (FV) Mid: Normal. Femoral Vein (FV) Dist: Normal. Popliteal Vein: Normal. Posterior Tibial Veins: Limited evaluation but no evidence of thrombus. Peroneal Veins: Limited evaluation without evidence of thrombus. Other: Fluid is present in the soft tissues of the anterior right knee measuring 2.7 x 1.0 x 2.3 cm. No internal vascularity is seen. There is edema in the soft tissues of the right calf without fluid collection. There is a fluid collection in the posterior and medial aspect of the left knee measuring 3.3 x 0.6 x 2.3 cm. IMPRESSION: 1. No evidence for deep venous thrombosis bilaterally. Limited evaluation of the posterior tibial and peroneal veins. 2. 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 3. Fluid collection in the soft tissues of the anterior right knee without internal vascularity. [facility]
[2019-05-23 22:01] LABS: HGB - HEMOGLOBIN 7.3 g/dL (12.0-16.0)
[2019-05-24] MEDS: SODIUM CHLORIDE FLUSH 0.9% 10 ML SYRINGE IVP SCH ×4 (01:32→23:55)
[2019-05-24 04:42] LABS: BASOPHILS # (AUTO) 0.1 10^3/uL (0.0-0.1); BASOPHILS % (AUTO) 0.7 %; EOSINOPHILS # (AUTO) 0.1 10^3/uL (0.0-0.7); EOSINOPHILS % (AUTO) 1.8 %; LYMPHOCYTES # (AUTO) 1.8 10^3/uL (1.5-3.5); LYMPHOCYTES % (AUTO) 26.1 %; MEAN CORPUSCULAR HEMOGLOBIN 18.5 pg (27.0-31.0); MEAN CORPUSCULAR HGB CONC 28.8 g/dL (32.0-36.0); MEAN CORPUSCULAR VOLUME 64.3 fL (81.0-99.0); MONOCYTES # (AUTO) 0.7 10^3/uL (0.0-1.0); MONOCYTES % (AUTO) 10.2 %; NEUTROPHILS # (AUTO) 4.1 10^3/uL (1.5-6.6); NEUTROPHILS % (AUTO) 60.8 %; PLT - PLATELET COUNT 313 10^3/uL (130-450); RED BLOOD COUNT 3.67 10^6/uL (4.20-5.40); RED CELL DISTRIBUTION WIDTH 21.8 % (12.0-15.0); WHITE BLOOD COUNT 6.8 x10^3/uL (4.8-10.8)
[2019-05-24 04:47] LABS: CALCIUM 8.6 mg/dL (8.5-10.3); CREATININE 0.7 mg/dL (0.4-1.0)
[2019-05-24 04:51] LABS: HGB - HEMOGLOBIN 6.8 g/dL (12.0-16.0)
[2019-05-24 05:05] LABS: PLATELET ESTIMATE, MANUAL NORMAL (130-450,000) (NORMAL)
[2019-05-24] MEDS: SODIUM CHLORIDE FLUSH 0.9% 10 ML SYRINGE IVP PRN ×2 (05:17→05:58)
[2019-05-24] MEDS ORDERED: SODIUM CHLORIDE 0.9% 500 ML ONE ×2 (05:35→15:23)
[2019-05-24] MEDS ORDERED: FERROUS SULFATE 325 MG TABLET PO SCH (08:00)
[2019-05-24] MEDS: LOSARTAN 50 MG TABLET PO SCH (08:01)
[2019-05-24] MEDS ORDERED: FERRIC GLUCONATE 125 MG in SODIUM CHLORIDE 0.9% 100ML 100 ML IV ONE (08:30)
[2019-05-24] MEDS ORDERED: cefUROXime axetil 250 MG TABLET PO SCH (09:00)
[2019-05-24] MEDS: SENNA 8.6 MG TABLET PO PRN (10:10)
[2019-05-24] MEDS ORDERED: FUROSEMIDE 40 MG/4 ML VIAL IVP STA (10:46)
--- NOTE | 2019-05-24 11:38 | PROVIDER PROGRESS NOTE ---
Subjective - Prog Note Date Prog Note Date: 05/24/19 - Subjective Subjective: She received 2 units of packed red blood cells overnight but hemoglobin remained less than 7 this morning. She reports feeling well at rest but she has not gotten out of bed to ambulate. She denies chest pain or shortness of breath at this time. She reports no bowel movement or signs of bleeding. She does feel constipated. Current Medications - Current Medications Current Medications: Active Medications Acetaminophen (Tylenol) 650 mg PO Q4HR PRN PRN Reason: Pain 1 to 4 Losartan Potassium (Cozaar) 50 mg PO DAILY [facility] Last Admin: 05/24/19 08:01 Dose: 50 mg Pravastatin Sodium (Pravachol) 20 mg PO QPM [facility] Senna (Senokot) 8.6 mg PO DAILY PRN PRN Reason: Constipation Last Admin: 05/24/19 10:10 Dose: 8.6 mg Sodium Chloride (Normal Saline Flush 0.9%) 10 ml IVP PRN PRN PRN Reason: NEEDED PER PROVIDER ORDERS Last Admin: 05/24/19 05:58 Dose: 10 ml Sodium Chloride (Normal Saline Flush 0.9%) 10 ml IVP 0100,0900,1700 [facility] Last Admin: 05/24/19 08:01 Dose: 10 ml Cholecalciferol (Vitamin D3) [Vitamin D3] 2,000 unit PO DAILY 09/15/17 Magnesium 400 mg PO DAILY 09/15/17 Capsaicin 1 applic TOP PRN PRN 05/24/19 Ciclopirox 1 applic TOP QPM 05/24/19 Olmesartan Medoxomil 20 mg PO DAILY 05/24/19 Pravastatin Sodium 20 mg PO QPM 05/24/19 amLODIPine [Norvasc] 5 mg PO DAILY 05/24/19 Objective - Vital Signs/Intake & Output Reviewed Vital Signs: Yes Vital Signs: Vital Signs x48h Temp Pulse Pulse Resp BP BP Pulse Ox 05/24/19 11:27 36.8 C 63 15 155/52 H 05/24/19 11:22 36.8 C 58 L 16 140/47 H 05/24/19 08:10 36.8 C 63 14 168/56 H 05/24/19 07:38 36.7 C 61 16 157/58 H 96 05/24/19 06:10 36.8 C 56 L 14 154/49 H 11/15/19 05:43 36.9 C 58 L 16 147/53 H 05/24/19 04:15 36.9 C 61 16 150/67 H 96 Intake & Output: Intake & Output 05/21/19 05/22/19 05/23/19 05/24/19 23:59 23:59 23:59 23:59 Intake Total 640 910 Output Total 550 2300 Balance 90 -1390 - Objective General Appearance: positive: No acute distress, Alert Eyes Bilateral: positive: Normal inspection ENT: positive: ENT inspection nml Neck: positive: Nml inspection Respiratory: positive: No respiratory distress, Other (Diminished breath sounds in bases.). negative: Wheezes, Rales, Rhonchi Cardiovascular: positive: Regular rate & rhythm, No murmur. negative: Tachycardia, Bradycardia, Systolic murmur, Diastolic murmur Abdomen: positive: Non-tender, No distention. negative: Tenderness Skin: positive: No rash, Warm, Dry, Pallor Extremities: positive: Pedal edema (+2 pitting edema in bilateral lower extremities. Right > Left.) Neurologic/Psychiatric: positive: Oriented x3. negative: Disoriented to person, Disoriented to place, Disoriented to time - Lab Results Fish Bones: 05/24/19 04:10 05/24/19 04:10 Other Labs: Lab Results x24hrs 05/24/19 05/24/19 05/24/19 Range/Units 08:27 04:10 04:10 WBC (4.8-10.8) x10^3/uL RBC (4.20-5.40) 10^6/uL Hgb (12.0-16.0) g/dL Hct (37.0-47.0) % MCV (81.0-99.0) fL MCH (27.0-31.0) pg MCHC (32.0-36.0) g/dL RDW (12.0-15.0) % Plt Count (130-450) 10^3/uL MPV (7.9-10.8) fL Reticulocyte % (Auto) (0.5-2.3) % Neut # (Auto) (1.5-6.6) 10^3/uL Lymph # (Auto) (1.5-3.5) 10^3/uL [place] # (Auto) (0.0-1.0) 10^3/uL Eos # (Auto) (0.0-0.7) 10^3/uL Baso # (Auto) (0.0-0.1) 10^3/uL Absolute Nucleated RBC x10^3/uL Nucleated RBC % /100WBC Manual Slide Review Platelet Estimate (NORMAL) Platelet Morphology (NORMAL) RBC Morph Micro Appear (NORMAL) Absolute Retic (0.020-0.110) 10^6/uL Sodium (135-145) mmol/L Potassium (3.5-5.0) mmol/L Chloride (101-111) mmol/L Carbon Dioxide (21-32) mmol/L Anion Gap (6-13) BUN (6-20) mg/dL Creatinine (0.4-1.0) mg/dL Estimated GFR (MDRD) (>89) Glucose (70-100) mg/dL Calcium (8.5-10.3) mg/dL Magnesium (1.7-2.8) mg/dL Iron (28-170) ug/dL TIBC (250-450) ug/dL Transferrin (192-382) mg/dL Ferritin (11.0-306.8) ng/mL Total Bilirubin (0.2-1.0) mg/dL AST (10-42) IU/L ALT (10-60) IU/L Alkaline Phosphatase (42-121) IU/L Lactate Dehydrogenase (91-225) IU/L Troponin I High Sens 94.2 H* 110.6 H* (2.3-14.8) ng/L B-Natriuretic Peptide 2073 H (5-100) pg/mL Total Protein (6.7-8.2) g/dL Albumin (3.2-5.5) g/dL Globulin (2.1-4.2) g/dL Albumin/Globulin Ratio (1.0-2.2) Lipase (22-51) U/L Vitamin B12 (180-914) pg/mL TSH (0.34-5.60) uIU/mL Urine Color Urine Clarity (CLEAR) Urine pH (5.0-7.5) PH Ur Specific [place] (1.002-1.030) Urine Protein (NEGATIVE) mg/dL Urine Glucose (UA) (NEGATIVE) mg/dL Urine Ketones (NEGATIVE) mg/dL Urine Occult Blood (NEGATIVE) Urine Nitrite (NEGATIVE) Urine Bilirubin (NEGATIVE) Urine Urobilinogen (NORMAL) E.U./dL Ur Leukocyte Esterase (NEGATIVE) Urine RBC (0-5) /HPF Urine WBC (0-5) /HPF Ur Squamous Epith Cells (<= Few) Urine Bacteria (None Seen) /HPF Ur Microscopic Review Urine Culture Comments Blood Type Blood Type Recheck Antibody Screen Crossmatch IS Only 05/24/19 05/24/19 05/23/19 Range/Units 04:10 04:10 21:55 WBC 6.8 (4.8-10.8) x10^3/uL RBC 3.67 L (4.20-5.40) 10^6/uL Hgb 6.8 L* 7.3 L (12.0-16.0) g/dL Hct 23.6 L 24.8 L (37.0-47.0) % MCV 64.3 L (81.0-99.0) fL MCH 18.5 L (27.0-31.0) pg MCHC 28.8 L (32.0-36.0) g/dL RDW 21.8 H (12.0-15.0) % Plt Count 313 (130-450) 10^3/uL MPV 9.0 (7.9-10.8) fL Reticulocyte % (Auto) (0.5-2.3) % Neut # (Auto) 4.1 (1.5-6.6) 10^3/uL Lymph # (Auto) 1.8 (1.5-3.5) 10^3/uL [place] # (Auto) 0.7 (0.0-1.0) 10^3/uL Eos # (Auto) 0.1 (0.0-0.7) 10^3/uL Baso # (Auto) 0.1 (0.0-0.1) 10^3/uL Absolute Nucleated RBC 0.00 x10^3/uL Nucleated RBC % 0.0 /100WBC Manual Slide Review Indicated Platelet Estimate NORMAL (130-450,000) (NORMAL) Platelet Morphology (NORMAL) RBC Morph Micro Appear 1+ SCHISTOCYTES (NORMAL) Absolute Retic (0.020-0.110) 10^6/uL Sodium 141 (135-145) mmol/L Potassium 3.7 (3.5-5.0) mmol/L Chloride 107 (101-111) mmol/L Carbon Dioxide 24 (21-32) mmol/L Anion Gap 10.0 (6-13) BUN 26 H (6-20) mg/dL Creatinine 0.7 (0.4-1.0) mg/dL Estimated GFR (MDRD) 79 L (>89) Glucose 97 (70-100) mg/dL Calcium 8.6 (8.5-10.3) mg/dL Magnesium (1.7-2.8) mg/dL Iron (28-170) ug/dL TIBC (250-450) ug/dL Transferrin (192-382) mg/dL Ferritin (11.0-306.8) ng/mL Total Bilirubin (0.2-1.0) mg/dL AST (10-42) IU/L ALT (10-60) IU/L Alkaline Phosphatase (42-121) IU/L Lactate Dehydrogenase (91-225) IU/L Troponin I High Sens (2.3-14.8) ng/L B-Natriuretic Peptide (5-100) pg/mL Total Protein (6.7-8.2) g/dL Albumin (3.2-5.5) g/dL Globulin (2.1-4.2) g/dL Albumin/Globulin Ratio (1.0-2.2) Lipase (22-51) U/L Vitamin B12 (180-914) pg/mL TSH (0.34-5.60) uIU/mL Urine Color Urine Clarity (CLEAR) Urine pH (5.0-7.5) PH Ur Specific [place] (1.002-1.030) Urine Protein (NEGATIVE) mg/dL Urine Glucose (UA) (NEGATIVE) mg/dL Urine Ketones (NEGATIVE) mg/dL Urine Occult Blood (NEGATIVE) Urine Nitrite (NEGATIVE) Urine Bilirubin (NEGATIVE) Urine Urobilinogen (NORMAL) E.U./dL Ur Leukocyte Esterase (NEGATIVE) Urine RBC (0-5) /HPF Urine WBC (0-5) /HPF Ur Squamous Epith Cells (<= Few) Urine Bacteria (None Seen) /HPF Ur Microscopic Review Urine Culture Comments Blood Type Blood Type Recheck Antibody Screen Crossmatch IS Only 05/23/19 05/23/1905/23/19 Range/Units 19:11 15:30 15:00 WBC (4.8-10.8) x10^3/uL RBC (4.20-5.40) 10^6/uL Hgb (12.0-16.0) g/dL Hct (37.0-47.0) % MCV (81.0-99.0) fL MCH (27.0-31.0) pg MCHC (32.0-36.0) g/dL RDW (12.0-15.0) % Plt Count (130-450) 10^3/uL MPV (7.9-10.8) fL Reticulocyte % (Auto) (0.5-2.3) % Neut # (Auto) (1.5-6.6) 10^3/uL Lymph # (Auto) (1.5-3.5) 10^3/uL [place] # (Auto) (0.0-1.0) 10^3/uL Eos # (Auto) (0.0-0.7) 10^3/uL Baso # (Auto) (0.0-0.1) 10^3/uL Absolute Nucleated RBC x10^3/uL Nucleated RBC % /100WBC Manual Slide Review Platelet Estimate (NORMAL) Platelet Morphology (NORMAL) RBC Morph Micro Appear (NORMAL) Absolute Retic (0.020-0.110) 10^6/uL Sodium (135-145) mmol/L Potassium (3.5-5.0) mmol/L Chloride (101-111) mmol/L Carbon Dioxide (21-32) mmol/L Anion Gap (6-13) BUN (6-20) mg/dL Creatinine (0.4-1.0) mg/dL Estimated GFR (MDRD) (>89) Glucose (70-100) mg/dL Calcium (8.5-10.3) mg/dL Magnesium (1.7-2.8) mg/dL Iron (28-170) ug/dL TIBC (250-450) ug/dL Transferrin (192-382) mg/dL Ferritin (11.0-306.8) ng/mL Total Bilirubin (0.2-1.0) mg/dL AST (10-42) IU/L ALT (10-60) IU/L Alkaline Phosphatase (42-121) IU/L Lactate Dehydrogenase (91-225) IU/L Troponin I High Sens 89.2 H* (2.3-14.8) ng/L B-Natriuretic Peptide (5-100) pg/mL Total Protein (6.7-8.2) g/dL Albumin (3.2-5.5) g/dL Globulin (2.1-4.2) g/dL Albumin/Globulin Ratio (1.0-2.2) Lipase (22-51) U/L Vitamin B12 (180-914) pg/mL TSH (0.34-5.60) uIU/mL Urine Color Urine Clarity (CLEAR) Urine pH (5.0-7.5) PH Ur Specific [place] (1.002-1.030) Urine Protein (NEGATIVE) mg/dL Urine Glucose (UA) (NEGATIVE) mg/dL Urine Ketones (NEGATIVE) mg/dL Urine Occult Blood (NEGATIVE) Urine Nitrite (NEGATIVE) Urine Bilirubin (NEGATIVE) Urine Urobilinogen (NORMAL) E.U./dL Ur Leukocyte Esterase (NEGATIVE) Urine RBC (0-5) /HPF Urine WBC (0-5) /HPF Ur Squamous Epith Cells (<= Few) Urine Bacteria (None Seen) /HPF Ur Microscopic Review Urine Culture Comments Blood Type O POSITIVE Blood Type Recheck O POSITIVE Antibody Screen NEGATIVE Crossmatch IS Only See Detail 05/23/19 05/23/19 05/23/19 Range/Units 14:55 14:41 14:41 WBC (4.8-10.8) x10^3/uL RBC (4.20-5.40) 10^6/uL Hgb (12.0-16.0) g/dL Hct (37.0-47.0) % MCV (81.0-99.0) fL MCH (27.0-31.0) pg MCHC (32.0-36.0) g/dL RDW (12.0-15.0) % Plt Count (130-450) 10^3/uL MPV (7.9-10.8) fL Reticulocyte % (Auto) (0.5-2.3) % Neut # (Auto) (1.5-6.6) 10^3/uL Lymph # (Auto) (1.5-3.5) 10^3/uL [place] # (Auto) (0.0-1.0) 10^3/uL Eos # (Auto) (0.0-0.7) 10^3/uL Baso # (Auto) (0.0-0.1) 10^3/uL Absolute Nucleated RBC x10^3/uL Nucleated RBC % /100WBC Manual Slide Review Platelet Estimate (NORMAL) Platelet Morphology (NORMAL) RBC Morph Micro Appear (NORMAL) Absolute Retic (0.020-0.110) 10^6/uL Sodium (135-145) mmol/L Potassium (3.5-5.0) mmol/L Chloride (101-111) mmol/L Carbon Dioxide (21-32) mmol/L Anion Gap (6-13) BUN (6-20) mg/dL Creatinine (0.4-1.0) mg/dL Estimated GFR (MDRD) (>89) Glucose (70-100) mg/dL Calcium (8.5-10.3) mg/dL Magnesium (1.7-2.8) mg/dL Iron (28-170) ug/dL TIBC (250-450) ug/dL Transferrin (192-382) mg/dL Ferritin 7.6 L (11.0-306.8) ng/mL Total Bilirubin (0.2-1.0) mg/dL AST (10-42) IU/L ALT (10-60) IU/L Alkaline Phosphatase (42-121) IU/L Lactate Dehydrogenase 134 (91-225) IU/L Troponin I High Sens (2.3-14.8) ng/L B-Natriuretic Peptide (5-100) pg/mL Total Protein (6.7-8.2) g/dL Albumin (3.2-5.5) g/dL Globulin (2.1-4.2) g/dL Albumin/Globulin Ratio (1.0-2.2) Lipase (22-51) U/L Vitamin B12 1256 H (180-914) pg/mL TSH (0.34-5.60) uIU/mL Urine Color YELLOW Urine Clarity CLEAR (CLEAR) Urine pH 5.5 (5.0-7.5) PH Ur Specific [place] 1.010 (1.002-1.030) Urine Protein 30 H (NEGATIVE) mg/dL Urine Glucose (UA) NEGATIVE (NEGATIVE) mg/dL Urine Ketones NEGATIVE (NEGATIVE) mg/dL Urine Occult Blood NEGATIVE (NEGATIVE) Urine Nitrite POSITIVE H (NEGATIVE) Urine Bilirubin NEGATIVE (NEGATIVE) Urine Urobilinogen 0.2 (NORMAL) (NORMAL) E.U./dL Ur Leukocyte Esterase MODERATE H (NEGATIVE) Urine RBC None Seen (0-5) /HPF Urine WBC >25 H (0-5) /HPF Ur Squamous Epith Cells RARE Squamous (<= Few) Urine Bacteria Moderate H (None Seen) /HPF Ur Microscopic Review INDICATED Urine Culture Comments INDICATED Blood Type Blood Type Recheck Antibody Screen Crossmatch IS Only 05/23/19 05/23/19 05/23/19 Range/Units 14:41 14:41 14:41 WBC (4.8-10.8) x10^3/uL RBC 3.17 L (4.20-5.40) 10^6/uL Hgb (12.0-16.0) g/dL Hct (37.0-47.0) % MCV (81.0-99.0) fL MCH (27.0-31.0) pg MCHC (32.0-36.0) g/dL RDW (12.0-15.0) % Plt Count (130-450) 10^3/uL MPV (7.9-10.8) fL Reticulocyte % (Auto) 1.72 (0.5-2.3) % Neut # (Auto) (1.5-6.6) 10^3/uL Lymph # (Auto) (1.5-3.5) 10^3/uL [place] # (Auto) (0.0-1.0) 10^3/uL Eos # (Auto) (0.0-0.7) 10^3/uL Baso # (Auto) (0.0-0.1) 10^3/uL Absolute Nucleated RBC x10^3/uL Nucleated RBC % /100WBC Manual Slide Review Platelet Estimate (NORMAL) Platelet Morphology (NORMAL) RBC Morph Micro Appear (NORMAL) Absolute Retic 0.055 (0.020-0.110) 10^6/uL Sodium (135-145) mmol/L Potassium (3.5-5.0) mmol/L Chloride (101-111) mmol/L Carbon Dioxide (21-32) mmol/L Anion Gap (6-13) BUN (6-20) mg/dL Creatinine (0.4-1.0) mg/dL Estimated GFR (MDRD) (>89) Glucose (70-100) mg/dL Calcium (8.5-10.3) mg/dL Magnesium (1.7-2.8) mg/dL Iron < 6 L (28-170) ug/dL TIBC 456 H (250-450) ug/dL Transferrin 326 (192-382) mg/dL Ferritin (11.0-306.8) ng/mL Total Bilirubin (0.2-1.0) mg/dL AST (10-42) IU/L ALT (10-60) IU/L Alkaline Phosphatase (42-121) IU/L Lactate Dehydrogenase (91-225) IU/L Troponin I High Sens (2.3-14.8) ng/L B-Natriuretic Peptide (5-100) pg/mL Total Protein (6.7-8.2) g/dL Albumin (3.2-5.5) g/dL Globulin (2.1-4.2) g/dL Albumin/Globulin Ratio (1.0-2.2) Lipase (22-51) U/L Vitamin B12 (180-914) pg/mL TSH 1.68 (0.34-5.60) uIU/mL Urine Color Urine Clarity (CLEAR) Urine pH (5.0-7.5) PH Ur Specific [place] (1.002-1.030) Urine Protein (NEGATIVE) mg/dL Urine Glucose (UA) (NEGATIVE) mg/dL Urine Ketones (NEGATIVE) mg/dL Urine Occult Blood (NEGATIVE) Urine Nitrite (NEGATIVE) Urine Bilirubin (NEGATIVE) Urine Urobilinogen (NORMAL) E.U./dL Ur Leukocyte Esterase (NEGATIVE) Urine RBC (0-5) /HPF Urine WBC (0-5) /HPF Ur Squamous Epith Cells (<= Few) Urine Bacteria (None Seen) /HPF Ur Microscopic Review Urine Culture Comments Blood Type Blood Type Recheck Antibody Screen Crossmatch IS Only 05/23/19 05/23/19 05/23/19 Range/Units 14:41 14:41 14:41 WBC (4.8-10.8) x10^3/uL RBC (4.20-5.40) 10^6/uL Hgb (12.0-16.0) g/dL Hct (37.0-47.0) % MCV (81.0-99.0) fL MCH (27.0-31.0) pg MCHC (32.0-36.0) g/dL RDW (12.0-15.0) % Plt Count (130-450) 10^3/uL MPV (7.9-10.8) fL Reticulocyte % (Auto) (0.5-2.3) % Neut # (Auto) (1.5-6.6) 10^3/uL Lymph # (Auto) (1.5-3.5) 10^3/uL [place] # (Auto) (0.0-1.0) 10^3/uL Eos # (Auto) (0.0-0.7) 10^3/uL Baso # (Auto) (0.0-0.1) 10^3/uL Absolute Nucleated RBC x10^3/uL Nucleated RBC % /100WBC Manual Slide Review Platelet Estimate (NORMAL) Platelet Morphology (NORMAL) RBC Morph Micro Appear (NORMAL) Absolute Retic (0.020-0.110) 10^6/uL Sodium 135 (135-145) mmol/L Potassium 4.3 (3.5-5.0) mmol/L Chloride 104 (101-111) mmol/L Carbon Dioxide 22 (21-32) mmol/L Anion Gap 9.0 (6-13) BUN 29 H (6-20) mg/dL Creatinine 0.7 (0.4-1.0) mg/dL Estimated GFR (MDRD) 79 L (>89) Glucose 122 H (70-100) mg/dL Calcium 8.8 (8.5-10.3) mg/dL Magnesium 2.2 (1.7-2.8) mg/dL Iron (28-170) ug/dL TIBC (250-450) ug/dL Transferrin (192-382) mg/dL Ferritin (11.0-306.8) ng/mL Total Bilirubin 0.5 (0.2-1.0) mg/dL AST 23 (10-42) IU/L ALT 25 (10-60) IU/L Alkaline Phosphatase 56 (42-121) IU/L Lactate Dehydrogenase (91-225) IU/L Troponin I High Sens 89.0 H* (2.3-14.8) ng/L B-Natriuretic Peptide 1547 H (5-100) pg/mL Total Protein 5.9 L (6.7-8.2) g/dL Albumin 3.3 (3.2-5.5) g/dL Globulin 2.6 (2.1-4.2) g/dL Albumin/Globulin Ratio 1.3 (1.0-2.2) Lipase 43 (22-51) U/L Vitamin B12 (180-914) pg/mL TSH (0.34-5.60) uIU/mL Urine Color Urine Clarity (CLEAR) Urine pH (5.0-7.5) PH Ur Specific [place] (1.002-1.030) Urine Protein (NEGATIVE) mg/dL Urine Glucose (UA) (NEGATIVE) mg/dL Urine Ketones (NEGATIVE) mg/dL Urine Occult Blood (NEGATIVE) Urine Nitrite (NEGATIVE) Urine Bilirubin (NEGATIVE) Urine Urobilinogen (NORMAL) E.U./dL Ur Leukocyte Esterase (NEGATIVE) Urine RBC (0-5) /HPF Urine WBC (0-5) /HPF Ur Squamous Epith Cells (<= Few) Urine Bacteria (None Seen) /HPF Ur Microscopic Review Urine Culture Comments Blood Type Blood Type Recheck Antibody Screen Crossmatch IS Only 05/23/19 Range/Units 14:41 WBC 6.1 (4.8-10.8) x10^3/uL RBC 3.20 L (4.20-5.40) 10^6/uL Hgb 5.6 L* (12.0-16.0) g/dL Hct 20.2 L (37.0-47.0) % MCV 63.1 L (81.0-99.0) fL MCH 17.5 L (27.0-31.0) pg MCHC 27.7 L (32.0-36.0) g/dL RDW 18.0 H (12.0-15.0) % Plt Count 303 (130-450) 10^3/uL MPV 9.3 (7.9-10.8) fL Reticulocyte % (Auto) (0.5-2.3) % Neut # (Auto) 4.3 (1.5-6.6) 10^3/uL Lymph # (Auto) 1.1 L (1.5-3.5) 10^3/uL [place] # (Auto) 0.6 (0.0-1.0) 10^3/uL Eos # (Auto) 0.1 (0.0-0.7) 10^3/uL Baso # (Auto) 0.0 (0.0-0.1) 10^3/uL Absolute Nucleated RBC 0.00 x10^3/uL Nucleated RBC % 0.0 /100WBC Manual Slide Review Indicated Platelet Estimate NORMAL (130-450,000) (NORMAL) Platelet Morphology NORMAL APPEARANCE (NORMAL) RBC Morph Micro Appear 1+ SCHISTOCYTES (NORMAL) Absolute Retic (0.020-0.110) 10^6/uL Sodium (135-145) mmol/L Potassium (3.5-5.0) mmol/L Chloride (101-111) mmol/L Carbon Dioxide (21-32) mmol/L Anion Gap (6-13) BUN (6-20) mg/dL Creatinine (0.4-1.0) mg/dL Estimated GFR (MDRD) (>89) Glucose (70-100) mg/dL Calcium (8.5-10.3) mg/dL Magnesium (1.7-2.8) mg/dL Iron (28-170) ug/dL TIBC (250-450) ug/dL Transferrin (192-382) mg/dL Ferritin (11.0-306.8) ng/mL Total Bilirubin (0.2-1.0) mg/dL AST (10-42) IU/L ALT (10-60) IU/L Alkaline Phosphatase (42-121) IU/L Lactate Dehydrogenase (91-225) IU/L Troponin I High Sens (2.3-14.8) ng/L B-Natriuretic Peptide (5-100) pg/mL Total Protein (6.7-8.2) g/dL Albumin (3.2-5.5) g/dL Globulin (2.1-4.2) g/dL Albumin/Globulin Ratio (1.0-2.2) Lipase (22-51) U/L Vitamin B12 (180-914) pg/mL TSH (0.34-5.60) uIU/mL Urine Color Urine Clarity (CLEAR) Urine pH (5.0-7.5) PH Ur Specific [place] (1.002-1.030) Urine Protein (NEGATIVE) mg/dL Urine Glucose (UA) (NEGATIVE) mg/dL Urine Ketones (NEGATIVE) mg/dL Urine Occult Blood (NEGATIVE) Urine Nitrite (NEGATIVE) Urine Bilirubin (NEGATIVE) Urine Urobilinogen (NORMAL) E.U./dL Ur Leukocyte Esterase (NEGATIVE) Urine RBC (0-5) /HPF Urine WBC (0-5) /HPF Ur Squamous Epith Cells (<= Few) Urine Bacteria (None Seen) /HPF Ur Microscopic Review Urine Culture Comments Blood Type Blood Type Recheck Antibody Screen Crossmatch IS Only ABX Reporting Has patient been on IV antibiotics over the past 48 hours?: No Assessment/Plan - Problem List (1) Iron deficiency anemia Impression: Her hemoglobin this morning was 6.8 despite 2 units of packed red blood cells overnight. She has has shown no signs of bleeding at this time. She is severely iron deficient based off of her labs. She has not tolerated oral iron in the past due to constipation, she will require IV iron. She was ordered another 3 units of packed red blood cells and then will recheck her hemoglobin. We will check stool occult to rule out GI bleed. When hemoglobin is stable, she will require outpatient follow-up as to why she is iron deficient if there is no evidence of bleeding. She may ultimately require hematology referral. (2) Chronic diastolic heart failure Impression: Cardiogram revealed a preserved ejection fraction but grade 1 diastolic dysfunction. She does have significant lower extremity edema and her BNP is elevated over 1999. We will diurese her with IV Lasix given she is receiving multiple units of blood. She will require an oral diuretic on discharge. Fortunately her lower extremity Dopplers were negative for DVT. We will continue to monitor her respiratory status although she is on room air at this time. (3) Elevated troponin Impression: Troponin was initially in the 80s but increased to the 110s. It is not trending back down. Her EKG did show possible ischemia although unclear if this is old or new. She currently has no chest pain. Echocardiogram revealed a preserved ejection fraction. At this time there is low suspicion for ACS. Suspect this is likely demand ischemia given her severe anemia. (4) Hypertension Impression: Pressure remains elevated on her home angiotensin receptor yon. We will continue to hold amlodipine given her lower extremity edema. She may benefit from hydrochlorothiazide or Lasix on discharge. (5) Asymptomatic bacteriuria Impression: Urinalysis revealed pyuria, leukocyte esterase, nitrites, bacteria but she has no symptoms of UTI. We will continue to hold antibiotics.
[2019-05-24] MEDS ORDERED: POLYETHYLENE GLYCOL 3350 17 GM PACKET PO PRN (16:31)
[2019-05-24 19:28] LABS: HGB - HEMOGLOBIN 10.6 g/dL (12.0-16.0)
[2019-05-24] MEDS: ENOXAPARIN 40 MG/0.4 ML SYRINGE SUBQ SCH (20:53)
[2019-05-24] MEDS ORDERED: PRAVASTATIN 10 MG TABLET PO SCH (21:00)
[2019-05-25] MEDS: ACETAMINOPHEN 325 MG TABLET PO PRN ×2 (00:02→04:59)
[2019-05-25 05:21] LABS: BASOPHILS # (AUTO) 0.1 10^3/uL (0.0-0.1); BASOPHILS % (AUTO) 0.8 %; EOSINOPHILS # (AUTO) 0.2 10^3/uL (0.0-0.7); EOSINOPHILS % (AUTO) 2.1 %; HGB - HEMOGLOBIN 10.9 g/dL (12.0-16.0); LYMPHOCYTES # (AUTO) 2.3 10^3/uL (1.5-3.5); LYMPHOCYTES % (AUTO) 23.6 %; MEAN CORPUSCULAR HEMOGLOBIN 21.3 pg (27.0-31.0); MEAN CORPUSCULAR HGB CONC 30.4 g/dL (32.0-36.0); MEAN CORPUSCULAR VOLUME 70.3 fL (81.0-99.0); MEAN PLATELET VOLUME 9.4 fL (7.9-10.8); NEUTROPHILS # (AUTO) 6.2 10^3/uL (1.5-6.6); NEUTROPHILS % (AUTO) 62.9 %; PLT - PLATELET COUNT 348 10^3/uL (130-450); RED BLOOD COUNT 5.11 10^6/uL (4.20-5.40); RED CELL DISTRIBUTION WIDTH 25.7 % (12.0-15.0); WHITE BLOOD COUNT 9.8 x10^3/uL (4.8-10.8)
[2019-05-25 05:29] LABS: CALCIUM 8.7 mg/dL (8.5-10.3); CREATININE 0.7 mg/dL (0.4-1.0)
[2019-05-25] MEDS ORDERED: POTASSIUM CHLORIDE 20 MEQ TABLET PO ONE (07:19)
--- NOTE | 2019-05-25 07:55 | Discharge Plan ---
Discharge Plan Problem Reviewed?: Yes Disposition: Home, Self Care Condition: Good Prescriptions: hydroCHLOROthiazide [Hydrodiuril] 25 mg PO DAILY #30 tablet Diet: Low Sodium Activity Restrictions: Activity as Tolerated Health Concerns: You were admitted to the hospital because of fatigue and weakness. You are found to have a low blood count which was likely causing the symptoms. You rec eived blood with improvement in your blood count. Your iron levels were quite low and you also received an iron infusion. You will need to follow-up with your primary care doctor to evaluate why your iron levels are low. You may need iron transfusions again in the future. We will not send you home with oral iron as you had constipation with it in the past and did not tolerate it well. Your blood pressure has been elevated throughout this hospitalization. You will need to resume your home blood pressure medication called Olmesartan. Please stop taking the Norvasc as that may have been causing your lower extremity swelling. I have prescribed you a new medication called hydrochlorothiazide. Please take this once a day as it will help control your blood pressure as well as remove fluid from your body. Please make sure to stay hydrated as this medication can potentially dehydrate you. Plan of Treatment: These stop taking your Norvasc for your high blood pressure. Please start taking hydrochlorothiazide 25 mg daily. This will help control your blood pressure and remove fluid. There were no other changes made to your medications. Care Goals: It is important that you follow-up with your primary care physician within [address] they can check your blood pressure and make sure you are feeling well. You will need to keep an eye on your blood counts in the future as well as your iron levels. You may need iron transfusions to maintain your blood count. Assessment: The patient expressed understanding of the goals and treatment plan. No Smoking: If you smoke, Please STOP! Call for help. Follow-up with: Liam Benites DO [Primary Care Provider] -
[2019-05-25] MEDS: ENOXAPARIN 40 MG/0.4 ML SYRINGE SUBQ SCH (07:59)
[2019-05-25] MEDS: LOSARTAN 50 MG TABLET PO SCH (08:00)
[2019-05-25] MEDS: SENNA 8.6 MG TABLET PO PRN (08:00)
[2019-05-25] MEDS: SODIUM CHLORIDE FLUSH 0.9% 10 ML SYRINGE IVP SCH (08:00)
[2019-05-25 08:53] VITALS: BP 129/48
[2019-05-25] MEDS ORDERED: hydroCHLOROthiazide 25 MG TABLET PO SCH (09:00)
--- NOTE | 2019-05-25 12:01 | DISCHARGE SUMMARY ---
Discharge Summary Admit Date: 05/23/19 Discharge Date: 05/25/19 Discharging Provider: Pranay Milan Primary Care Provider: Liam Benites Code Status: Do Not Attempt Resuscitation Condition at Discharge: Good Discharge Disposition: 01 Home, Self Care - DIAGNOSES Admission Diagnoses: Iron deficiency anemia Lower extremity edema Elevated troponin Hypertension Asymptomatic bacteriuria Discharge Diagnoses with Status of Each Condition: Iron deficiency anemia - improved. Admitted for iron deficiency anemia with hemoglobin of 5.6. She initially received 2 units of packed red blood cells but her hemoglobin decreased again to less than 7. She was given another 3 units of blood with improvement of her hemoglobin to the low tens. The following morning it was stable and was nearly 11. Stool was negative for blood in the ER. A r epeat stool was ordered but never completed. She denied any signs of bleeding. She has had prior episodes of iron deficiency in the past and required IV iron, she did receive 1 dose of IV iron during this hospitalization. She was not discharged on oral iron as she said she did not tolerate it in the past due to constipation. She was asked to follow-up with her primary care physician as she may require IV iron transfusions in the future and will need further work-up to identify the cause of her iron deficiency. She may require hematology referral. Chronic diastolic heart failure - stable. Her echocardiogram revealed preserved ejection fraction with grade 1 diastolic dysfunction. Her BNP was elevated over 1999 she does have lower extremity edema. Fortunately she was never hypoxic. S he was given intermittent IV Lasix throughout the hospitalization given the large amount of transfusion she received. She was discharged on hydrochlorothiazide given her hypertension and lower extremity edema. She was asked to follow-up with her primary care physician. Elevated troponin - resolved. Troponins peaked in the 110s. She did not have chest pain. Her EKG did show signs of ischemia unclear if it was old or new. Her echocardiogram revealed preserved ejection fraction. It is believed that this elevated troponin was demand ischemia in the setting of severe anemia. Hypertension - stable. She was hypertensive during this hospitalization but she was not on her home Norvasc. Given her lower extremity edema, her Norvasc was discontinued as it is believed to be a possible cause of her edema in addition to her diastolic heart failure. She was discharged on her home olmesartan and was started on hydrochlorothiazide. Asymptomatic bacteriuria - Urinalysis revealed pyuria, leukocyte esterase, nitrites, bacteria but she has no symptoms of UTI. She was not treated with antibiotics given she has no symptoms. Urine culture grew Citrobacter. - HPI History of Present Illness: This is a pleasant 88-year-old female with a past medical history significant for hypertension who presents from home today complaining of worsening fatigue and weakness over the past few weeks. She states her symptoms became more significant today and therefore she seeked medical attention. She states her symptoms have been going on for a few weeks now. She has associated dyspnea with exertion but no dyspnea at rest. She reports no chest pain, dysuria, ur gency, frequency. She also reports worsening lower extremity edema over the past 6 weeks. She denies a prior history of myocardial infarction or heart failure. She has not noticed any signs of bleeding. Denies blood in her stools. She states she has a history of iron deficiency anemia in the past for which she required IV iron infusions. She reports never receiving a blood transfusion in the past. She does not currently receive any iron supplementation. She states she had a colonoscopy quite a few years ago and it was normal from what she can recall. In the emergency department, she was found to be hemodynamically stable. Her hemoglobin was found to be 5.6 with a low iron and ferritin. Her BNP was also elevated at greater than 1500. Her troponin is also elevated in the 80s. Her EKG does show T wave inversions in leads II, III, aVF. There is no old EKG to compare to. Given these findings, medicine was consulted for admission. I did speak to the patient regarding her goals of care. She would like to be a DNR. - HOSPITAL COURSE Hospital Course: She was admitted for iron deficiency anemia with a hemoglobin of 5.6. Her iron was less than 6, TIBC was 456, and ferritin was 7.6. Her BNP on admission was 1500. She received 2 units of packed red blood cells with improvement of her hemoglobin to 7.3. The following morning it had decreased to 6.8. She was transfused another 3 units of packed red blood cell. Her stool was negative for blood in the ER and she had no signs of bleeding during the hospitalization. Her hemoglobin improved to 10.6 after the transfusion of 3 packed red blood cells. The following morning it was stable at 10.9. Her troponins initially were in the 80s. They peaked in the 110s. She never had any chest pain. EKG showed T wave inversions in leads III and aVF. Unclear if these are old or new. It was believed her elevated troponin was demand ischemia due to her severe anemia. An echocardiogram was completed given her elevated BNP and lower extremity edema as well as elevated troponin. Revealed a preserved ejection fraction with grade 1 diastolic dysfunction. She did require IV Lasix during the hospitalization given the amount of fluid she received. She was never hypoxic or dyspneic. Dopplers of the lower extremity were negative for DVT. She was discharged on hydrochlorothiazide rather than amlodipine and given her lower extremity edema that she might benefit from a diuretic. She was asked to follow-up with her primary care physician for further management of her hypertension and iron deficiency anemia. - ALLERGIES Allergies/Adverse Reactions: Allergies Allergy/AdvReac Type Severity Reaction Status Date / Time No Known Drug Allergies Allergy Verified 07/23/13 14:40 - MEDICATIONS Home Medications: Ambulatory Orders Medication Instructions Recorded Confirmed Cholecalciferol (Vitamin D3) 2,000 unit PO DAILY 09/15/17 05/24/19 [Vitamin D3] Magnesium 400 mg PO DAILY 09/15/17 05/24/19 Capsaicin 1 applic TOP PRN PRN 05/24/19 05/24/19 Ciclopirox 1 applic TOP QPM 05/24/19 05/24/19 Olmesartan Medoxomil 20 mg PO DAILY 05/24/19 05/24/19 Pravastatin Sodium 20 mg PO QPM 05/24/19 05/24/19 hydroCHLOROthiazide [Hydrodiuril] 25 mg PO DAILY #30 tablet 05/25/19 - PHYSICAL EXAM AT DISCHARGE General Appearance: positive: No acute distress, Alert Eyes Bilateral: positive: Normal inspection ENT: positive: ENT inspection nml Neck: positive: Nml inspection Respiratory: positive: No respiratory distress, Other (Diminished breath sounds in the bases.). negative: Wheezes, Rales, Rhonchi Cardiovascular: positive: Regular rate & rhythm, No murmur. negative: Tachycardia, Bradycardia, Systolic murmur, Diastolic murmur Abdomen: positive: Non-tender, No distention. negative: Tenderness, Guarding, Rebound Skin: positive: No rash, Warm, Dry Extremities: positive: Pedal edema (+1 pitting edema in the bilateral lower extremities) Neurologic/Psychiatric: positive: Oriented x3, Other (No focal motor deficits.). negative: Disoriented to person, Disoriented to place, Disoriented to time - LABS Result Diagrams: 05/25/19 04:40 05/25/19 04:40 - DIAGNOSTIC IMAGING Diagnostic Imaging Results: Final report reviewed - FOLLOW UP Follow Up: She was asked to follow-up with her primary care physician within 1 week. - TIME SPENT Time Spent in Discharge (Minutes): 35
== END 2019-05-25 11:47 | disposition home or self-care (01) | DRG 812 ==
LOC: EDUNIT# → EDBD → ED 13:53 → MS2 16:02 → OBSVTOIN 05-24 09:50 → INTOOBSV 05-24 09:50 → UNDODISIN 05-25 11:47
PROVIDERS: ADMIT Internal Medicine; ATTEND Internal Medicine
DX: D50.9 Iron deficiency anemia, unspecified (principal); R60.0 Localized edema; I10 Essential (primary) hypertension; E78.00 Pure hypercholesterolemia, unspecified; I50.32 Chronic diastolic (congestive) heart failure; R82.71 Bacteriuria; R79.89 Other specified abnormal findings of blood chemistry; M19.90 Unspecified osteoarthritis, unspecified site; I11.0 Hypertensive heart disease with heart failure; M25.462 Effusion, left knee; M25.461 Effusion, right knee; K59.00 Constipation, unspecified; Z66 Do not resuscitate; Z95.828 Presence of other vascular implants and grafts
CPT/HCPCS: 36415; 71046; 80048; 80053; 81001; 82607; 82728; 83540; 83615; 83690; 83735; 83880; 84443; 84466; 84484; 85014; 85018; 85025; 85045; 86850; 86900; 86901; 86920; 87077; 87086; 87181; 93005; 93306; 93970; 96365; 96375; 99284; 99285; A9270; G0378; J1650; J2916; P9016; 36430; 81003; 82272

== ENCOUNTER 2019-07-02 12:00 | Outpatient (CLI) | payer MEDICARE, OTHER ==
[2019-07-02 15:54] LABS: BASOPHILS # (AUTO) 0.1 10^3/uL (0.0-0.1); BASOPHILS % (AUTO) 0.9 %; EOSINOPHILS # (AUTO) 0.1 10^3/uL (0.0-0.7); EOSINOPHILS % (AUTO) 1.5 %; HGB - HEMOGLOBIN 12.4 g/dL (12.0-16.0); LYMPHOCYTES # (AUTO) 2.2 10^3/uL (1.5-3.5); MEAN CORPUSCULAR HEMOGLOBIN 23.7 pg (27.0-31.0); MEAN CORPUSCULAR HGB CONC 30.7 g/dL (32.0-36.0); MEAN CORPUSCULAR VOLUME 77.1 fL (81.0-99.0); MEAN PLATELET VOLUME 9.5 fL (7.9-10.8); MONOCYTES # (AUTO) 0.6 10^3/uL (0.0-1.0); MONOCYTES % (AUTO) 7.1 %; NEUTROPHILS # (AUTO) 4.9 10^3/uL (1.5-6.6); NEUTROPHILS % (AUTO) 61.9 %; PLT - PLATELET COUNT 251 10^3/uL (130-450); RED BLOOD COUNT 5.24 10^6/uL (4.20-5.40); WHITE BLOOD COUNT 7.9 x10^3/uL (4.8-10.8)
[2019-07-02 16:27] LABS: PLATELET ESTIMATE, MANUAL NORMAL (130-450,000) (NORMAL); PLATELET MORPHOLOGY 1+ GIANT PLATELETS (NORMAL)
== END 2019-07-02 23:59 | disposition home or self-care (01) ==
LOC: LAB.WCP 12:00
PROVIDERS: ATTEND Family Medicine
DX: D64.9 Anemia, unspecified (principal)
CPT/HCPCS: 36415; 82728; 85025

== ENCOUNTER 2019-07-26 11:25 | Outpatient (CLI) | payer MEDICARE, OTHER ==
--- NOTE | 2019-07-27 10:38 | XRAY Report ---
Reason: SHORTNESS OF BREATH Procedure Date: 07/26/2019 Accession Number: [id number] / [id number] Procedure: WCP - Chest 2 View X-Ray CPT Code: 78691 Final Report FULL RESULT: EXAM: CHEST RADIOGRAPHY EXAM DATE: 07/26/2019 11:25 AM HISTORY: SHORTNESS OF BREATH COMPARISON: CHEST 2 VIEW 05/23/2019 2:56 PM TECHNIQUE: Two Views FINDINGS: Lungs/Pleura: No consolidation, edema or pleural effusion. Cardiomediastinal silhouette: Upper limits normal heart size accounting for technique. Other: Mild to moderate scoliosis, convex right at the thoracolumbar level. IMPRESSION: No acute disease. [facility]
== END 2019-07-26 23:59 | disposition home or self-care (01) ==
LOC: DI.WCP 11:25
PROVIDERS: ATTEND Family Medicine
DX: R06.02 Shortness of breath (principal)
CPT/HCPCS: 71046

== ENCOUNTER 2019-09-18 17:14 | Outpatient (CLI) | payer MEDICARE, OTHER | END 2019-09-18 23:59 | disposition home or self-care (01) | LOC: LAB.R 17:14 | PROVIDERS: ATTEND Physician Assistant | DX: N39.0 Urinary tract infection, site not specified (principal) | CPT/HCPCS: 87086 ==

== ENCOUNTER 2020-04-23 08:00 | Outpatient (CLI) | payer MEDICARE, OTHER ==
[2020-04-23 18:11] LABS: BASOPHILS # (AUTO) 0.1 10^3/uL (0.0-0.1); BASOPHILS % (AUTO) 0.7 %; EOSINOPHILS # (AUTO) 0.2 10^3/uL (0.0-0.7); EOSINOPHILS % (AUTO) 1.8 %; HGB - HEMOGLOBIN 9.7 g/dL (12.0-16.0); LYMPHOCYTES # (AUTO) 2.5 10^3/uL (1.5-3.5); MEAN CORPUSCULAR HEMOGLOBIN 25.7 pg (27.0-31.0); MEAN CORPUSCULAR HGB CONC 29.9 g/dL (32.0-36.0); MEAN CORPUSCULAR VOLUME 85.7 fL (81.0-99.0); MONOCYTES # (AUTO) 0.8 10^3/uL (0.0-1.0); MONOCYTES % (AUTO) 7.9 %; NEUTROPHILS # (AUTO) 6.4 10^3/uL (1.5-6.6); NEUTROPHILS % (AUTO) 63.7 %; PLT - PLATELET COUNT 457 10^3/uL (130-450); RED BLOOD COUNT 3.78 10^6/uL (4.20-5.40); RED CELL DISTRIBUTION WIDTH 21.5 % (12.0-15.0)
[2020-04-23 18:29] LABS: ALBUMIN 3.9 g/dL (3.2-5.5); ALBUMIN/GLOBULIN RATIO 1.3 (1.0-2.2); BILIRUBIN,TOTAL 0.9 mg/dL (0.2-1.0); CALCIUM 9.8 mg/dL (8.5-10.3); CREATININE 0.9 mg/dL (0.4-1.0)
[2020-04-23 18:30] LABS: PLATELET ESTIMATE, MANUAL INCREASED (>450,000) (NORMAL); PLATELET MORPHOLOGY NORMAL APPEARANCE (NORMAL)
[2020-04-23 18:43] LABS: FERRITIN 77.6 ng/mL (11.0-306.8)
== END 2020-04-23 23:59 ==
LOC: LAB.WCP 08:00
PROVIDERS: ATTEND Family Medicine
DX: D64.9 Anemia, unspecified (principal)
CPT/HCPCS: 36415; 80053; 82607; 82728; 83540; 84466; 85025